=== PATIENT | male | born 1975 | race Caucasian/White ===

== ENCOUNTER 2020-04-01 12:23 | Emergency (ER) | payer OTHER, SELFPAY ==
[2020-04-01 12:56] VITALS: BP 157/99; PULSE 85; RESP 20; TEMP 36.8; O2SAT 100
--- NOTE | 2020-04-01 13:05 | ED.SKABFB ---
HPI - Skin/Abscess/Foreign Bdy General Chief complaint: Skin/Abscess/Foreign Body Stated complaint: Poison Corinne Time Seen by Provider: 04/01/20 13:06 Source: patient and RN notes reviewed History of Present Illness HPI narrative: Patient is a 44-year-old male who presents the urgent care with complaints of poison corinne to bilateral eyelids, bilateral lower arms, bilateral legs and waist. Patient states that he was near [place] yesterday looking for his son's keys that he dropped while fishing. Patient states that he has taken 1 dose of Benadryl approximately 4 hours ago and is use calamine without any improvement. Patient denies of any shortness of breath. Denies of any areas to the groin or buttocks. No other acute complaints. No acute distress noted. Patient read the plan of care. Related Data Allergies Allergy/AdvReac Type Severity Reaction Status Date / Time No Known Allergies Allergy Verified 04/01/20 13:01 Review of Systems Review of Systems: Narrative: CONSTITUTIONAL: Denies fever, chills, or sweats. EYES: Denies visual changes, redness, or discharge. ENT: Denies rhinorrhea, congestion, sore throat, or otalgia. CARDIOVASCULAR: Denies chest pain, palpitations, or edema. RESPIRATORY: Denies cough or dyspnea. GASTROINTESTINAL: Denies abdominal pain, nausea, vomiting, or diarrhea. GENITOURINARY: Denies dysuria or hematuria. SKIN: Reports of poison corinne to bilateral eyelids, bilateral lower arms, bilateral lower legs and waist MUSCULOSKELETAL: Denies back pain, joint pain, or myalgia. NEUROLOGIC: Denies headache, numbness, or weakness. All other systems reviewed are negative, except as documented in HPI. PMFSH Family History Family History (System 04/01/20 @ 11:44 by Olya Montalvo) Other Diabetes mellitus Family history of bipolar disorder Family history of hypercholesterolemia Family history of obesity Hypertension Social History Social History (System 04/01/20 @ 11:44 by Olya Montalvo) Smoking status: Never smoker Second hand tobacco smoke exposure: No Alcohol intake: never Comments At the time of my signature, I reviewed and agree with the nursing past medical, surgical, social, and family history. There is no relevant family history pertinent to the patient complaint. Exam Narrative: Exam Narrative: GENERAL: This is a well-nourished, well-developed patient, in no apparent distress. HEAD: normocephalic, atraumatic. EYES: PERRL. Sclera clear/white. Vision is grossly intact. Mild edema and erythema noted bilateral upper eyelids EARS: External ears normal NOSE: External nose normal with no obvious nasal discharge, nares without redness, no rhinorrhea. THROAT: Mucous membranes moist NECK: Neck supple SKIN: Erythemic papular linear Christal dermatitis noted to bilateral lower arms, bilateral lower legs, waist NEURO: awake, alert, and oriented to person, place and time. There were no obvious focal neurologic abnormalities. EXTREMITIES: No clubbing, cyanosis, or edema. Course Vital Signs Vital signs: Vital Signs Temperature 98.2 F 04/01/20 12:56 Pulse Rate 85 04/01/20 12:56 Respiratory Rate 20 04/01/20 12:56 Blood Pressure 157/99 H 04/01/20 12:56 Pulse Oximetry 100 04/01/20 12:56 Temperature 98.2 F 04/01/20 12:56 Pulse Rate 85 04/01/20 12:56 Respiratory Rate 20 04/01/20 12:56 Blood Pressure 157/99 H 04/01/20 12:56 Pulse Oximetry 100 04/01/20 12:56 Reviewed?patient is informed that they may have pre-hypertension or hypertension based on a blood pressure reading in the department. I recommend the patient call the primary care provider listed on their discharge instructions or a physician of their choice this week to arrange follow-up for further evaluation of possible pre-hypertension or hypertension. MDM - Skin/Abscess/Foreign Bdy MDM Narrative Medical decision making narrative: Advised the patient to start steroid taper as prescribed, starting tomorrow. You do not
[2020-04-01] MEDS: methylPREDNISolone ACETATE 80 MG/ML VIAL IM (13:12)
== END 2020-04-01 13:31 | disposition home or self-care (01) ==
PROVIDERS: Emergency Provider Nurse Practitioner Family
DX: L23.7 Allergic contact dermatitis due to plants, except food (principal)
CPT/HCPCS: 96372; 99213; G0463; J1040

== ENCOUNTER 2021-04-15 03:54 | Emergency (ER) | payer OTHER, SELFPAY ==
--- NOTE | ~2021-04-15 | CT_ITS ---
EXAMINATION: CT abdomen pelvis w con DATE: 04/15/2021 04:51 INDICATION: Epigastric pain TECHNIQUE: Computed tomography (CT) of the abdomen and pelvis was performed with 100 cc Omnipaque 350 intravenous contrast. The dose-length product was 1042.73 mGy-cm. Automated exposure control and ite rative reconstruction technique were employed. COMPARISON: None. FINDINGS: Lung bases are unremarkable. Heart size is normal. No significant pleural or pericardial ef fusion. No significant vascular abnormality. No lymphadenopathy. Nonobstructive bowel gas pattern. Co lonic diverticulosis without evidence for diverticulitis. No free air or free fluid. Small fat-contai fifi umbilical hernia. Small subcentimeter hypodensities of the liver, most likely benign cysts. The spleen, pancreas, adren al glands and kidneys are unremarkable. Normal appendix. Gallbladder is present. There is an accessor y splenule. No acute osseous abnormality. IMPRESSION: 1. No acute abdominal abnormality. Reviewed, dictated and finalized at location A.
[2021-04-15 04:00] VITALS: BP 175/119; PULSE 75; RESP 16; TEMP 36.7; O2SAT 100
--- NOTE | 2021-04-15 04:00 | ED.ABDPAIN ---
HPI - Abdominal Pain General Chief Complaint: Abdominal Pain Stated Complaint: Abd pain Time Seen by Provider: 04/15/21 03:59 History of Present Illness HPI narrative: Severe epigastric pain for the past hour. No radiation. Worse with taking a deep breath. This is a new problem No nausea, vomiting, diarrhea, fever. Related Data Home Medications Medication Instructions Recorded Confirmed No Home Medications 04/15/21 Allergies Allergy/AdvReac Type Severity Reaction Status Date / Time No Known Allergies Allergy Verified 04/15/21 04:03 Review of Systems Review of Systems: All systems reviewed & are unremarkable except as noted in HPI and below Constitutional: Constitutional: Denies fever(s) ENT: Reports system reviewed and no additional complaints, except as documented Cardiovascular: Cardiovascular: Denies chest pain Respiratory: Respiratory: Denies dyspnea Gastrointestinal: Gastrointestinal: Reports abdominal pain, Denies diarrhea, Denies nausea and Denies vomiting Genitourinary: Genitourinary: Reports no additional male genitourinary complaints Musculoskeletal: Musculoskeletal: Denies back pain Neurologic: Reports system reviewed and no additional complaints, except as documented [facility] Family History Family History Other Diabetes mellitus Family history of bipolar disorder Family history of hypercholesterolemia Family history of obesity Hypertension Social History Social History Smoking status: Never smoker Second hand tobacco smoke exposure: No Alcohol intake: never Gender identity (if verbalized by the patient): Male Sexual Orientation (if Verbalized by the Patient): Straight or Heterosexual Exam Const: General: healthy appearing, no acute distress and alert Orientation/consciousness: patient oriented x3 HENMT: Head: normal to inspection Neck: Neck: normal visual inspection Resp: Effort & Inspection: normal respiratory effort Auscultation: clear to auscultation bilaterally Cardio: Rate: regular rate Rhythm: regular rhythm GI: GI Palp: Yes Tenderness to palpation present (GI) (epigastric), No Guarding due to palpation present (GI) and No Rebound tenderness present Skin: General skin exam: normal color Neuro: General: patient oriented x3, moves all extremities, no focal motor deficits and CN's II-XI intact bilaterally Speech: normal speech Course Vital Signs Vital signs: Vital Signs Temperature 36.7 C 04/15/21 04:00 Pulse Rate 75 04/15/21 04:00 Respiratory Rate 16 04/15/21 04:00 Blood Pressure 175/119 H 04/15/21 04:00 Pulse Oximetry 100 04/15/21 04:00 Temperature 36.7 C 04/15/21 04:00 Pulse Rate 75 04/15/21 06:45 Respiratory Rate 15 04/15/21 06:45 Blood Pressure 147/96 H 04/15/21 06:45 Pulse Oximetry 98 04/15/21 06:45 MDM - Abdominal Pain Medical Records Attestation: I reviewed the patient's medical records. Lab Data Attestation: I reviewed the patient's lab results. Result diagrams: 04/15/21 04:11 04/15/21 04:11 Labs: Lab Results 04/15/21 04/15/21 Range/Units 04:11 04:11 WBC 6.4 (4.5-10.0) K/mm3 RBC 5.11 (4.6-6.20) M/mm3 Hgb 14.9 (14.0-18.0) g/dL Hct 42.6 (42.0-52.0) % MCV 83.4 (80-100) fl MCH 29.2 (26-34) pg MCHC 35.0 (32-36) g/dl RDW 13.2 (11.5-14.5) % Plt Count 300 (150-375) k/mm3 MPV 8.3 (7.4-10.4) fl Immature Gran % (Auto) 0.2 (0-0.5) % Neut % (Auto) 43.5 L (45.5-73.1) % Lymph % (Auto) 44.8 H (18.3-44.2) % Coke % (Auto) 9.4 H (2.6-8.5) % Eos % (Auto) 1.3 (0-4.4) % Baso % (Auto) 0.8 (0.2-1.2) % Lymph # (Auto) 2.87 (0.9-3.2) K/mm3 Coke # (Auto) 0.6 (0.1-0.6) K/mm3 Eos # (Auto) 0.1 (0-0.3) K/mm3 Baso # (Auto) 0.1 (0.0-0.1) K/mm3 Abs Immat Gran (auto) 0.01 (0.00-0.031) K/mm3 Abs
--- NOTE | 2021-04-15 04:03 | ECG_ITS ---
Measurements Intervals [place] Rate: 77 P: 40 MI: 162 QRS: 66 QRSD: 96 T: 48 QT: 382 QTc: 432 Interpretive Statements SINUS RHYTHM INCOMPLETE RIGHT BUNDLE BRANCH BLOCK BASELINE WANDER- III, AVF BORDERLINE ECG Electronically Signed On 04-15-2021 6:22:22 CDT by Brian Briseno D.O.
[2021-04-15] MEDS: fentaNYL CITRATE INJ (*CRX) 100 MCG/2 ML VIAL 50 MCG IV PUSH (04:17)
[2021-04-15] MEDS: PANTOPRAZOLE SODIUM IV 40 MG VIAL IV PUSH (04:17)
[2021-04-15 04:21] LABS: Basophils Absolute Auto 0.1 K/mm3 (0.0-0.1); Basophils Percent Auto 0.8 % (0.2-1.2); Eosinophils Absolute Auto 0.1 K/mm3 (0-0.3); Eosinophils Percent Auto 1.3 % (0-4.4); Hematocrit 42.6 % (42.0-52.0); Hemoglobin 14.9 g/dL (14.0-18.0); Immature Granulocyte Absolute 0.01 K/mm3 (0.00-0.031); Immature Granulocyte Percent A 0.2 % (0-0.5); Lymphocytes Absolute Auto 2.87 K/mm3 (0.9-3.2); Lymphocytes Percent Auto 44.8 % (18.3-44.2); Mean Corpuscular Hemoglobin 29.2 pg (26-34); Mean Corpuscular Volume 83.4 fl (80-100); Mean Platelet Volume 8.3 fl (7.4-10.4); Monocytes Absolute Auto 0.6 K/mm3 (0.1-0.6); Monocytes Percent Auto 9.4 % (2.6-8.5); Neutrophils Absolute Auto 2.8 K/mm3 (1.3-6.7); Neutrophils Percent Auto 43.5 % (45.5-73.1); Platelet Count Result 300 k/mm3 (150-375); Red Blood Count 5.11 M/mm3 (4.6-6.20); Red Cell Distribution Width 13.2 % (11.5-14.5); White Blood Count 6.4 K/mm3 (4.5-10.0)
[2021-04-15 04:39] LABS: Alanine Aminotransferase 37 U/L (4-50); Albumin Level 4.5 g/dL (3.5-5.1); Alkaline Phosphatase 86 U/L (38-126); Anion Gap 9 mmol/L (8-16); Aspartate Amino Transferase 74 U/L (17-59); Bilirubin,Total 0.4 mg/dL (0.2-1.3); Blood Urea Nitrogen 19 mg/dL (9-20); Calcium 9.5 mg/dL (8.4-10.2); Carbon Dioxide 26 mmol/L (22-30); Chloride 105 mmol/L (98-107); Estimated CRCL calculation 106 ml/min; Estimated Glomerular Filt Rate > 60; Glucose 129 mg/dL (65-110); Lipase 269 U/L (23-300); Potassium 3.9 mmol/L (3.4-5.0); Sodium 140 mmol/L (137-145)
[2021-04-15 06:45] VITALS: BP 147/96; PULSE 75; RESP 15; O2SAT 98
[2021-04-15 07:21] VITALS: BP 147/95; PULSE 74; RESP 19; O2SAT 96
== END 2021-04-15 07:28 | disposition home or self-care (01) ==
PROVIDERS: Emergency Provider Emergency Medicine; PCP Physician Assistant
DX: R10.13 Epigastric pain (principal)
CPT/HCPCS: 36415; 74177; 80053; 83690; 85025; 93005; 96374; 96375; 99284; C9113; J3010; Q9967